=== PATIENT | male | born 1955 | race Caucasian/White ===

== ENCOUNTER → 2018-10-11 | Outpatient (CLI) | payer BC ==
--- NOTE | 2018-10-11 11:58 | Diagnostic Imaging Report ---
PATIENT HISTORY: Knee pain, left. TECHNIQUE: Three views of the left knee. COMPARISON: None. FINDINGS: No acute fracture is seen in the left knee. Alignment appears normal. There are advanced degenerative changes at the proximal tibiofibular joint. There is extensive calcific atherosclerosis. There is enthesopathy of the superior patella with overlying soft tissue edema. No joint effusion is seen. IMPRESSION: 1. Degenerative changes in the proximal tibiofibular joint with no acute osseous abnormality seen in the left knee. 2. Enthesopathy at the superior patella with adjacent soft tissue edema. Dictated by: Dictated on workstation # [id number]
== END ==
LOC: RAD FS 11:31
PROVIDERS: ATTEND Nurse Practitioner
DX: M76.892 Other specified enthesopathies of left lower limb, excluding foot (principal); M17.12 Unilateral primary osteoarthritis, left knee
CPT/HCPCS: 73562

== ENCOUNTER → 2022-01-01 | Outpatient (CLI) | payer MEDICARE, OTHER ==
[~2022-01-01] VITALS: Ht 185 cm; Wt 88.0 kg
[~2022-01-01] MED LIST: CATHETER FLUSH 10 ML SYR IVP PRN
[2022-01-01 12:19] VITALS: BP 140/87
--- NOTE | 2022-01-02 11:59 | Cardiology Stress Test Report ---
Stress Test Report Date of Procedure/Referring: Date of Procedure: Jan 01, 2022 PCP Valerie Cantu MD Admitting Physician Admitting Physician: Attending Physician: Josselyn Humphries MD Indications: HTN Baseline Heart Rate: 86 Baseline Blood Pressure: Blood Pressure Systolic: 140 Blood Pressure Diastolic: 87 Vital Signs Date Time Temp Pulse Resp B/P (MAP) Pulse Ox O2 Delivery O2 Flow Rate FiO2 01/01/22 12:19 86 140/87 (104) Baseline Vital Signs Vital Signs Date Time Temp Pulse Resp B/P (MAP) Pulse Ox O2 Delivery O2 Flow Rate FiO2 01/01/22 12:19 86 140/87 (104) Baseline EKG: Baseline EKG: NSR Summary: After explaining the procedure and details to the patient, he signed the consent and was brought to the stress nuclear laboratory. Patient exercised on standard Kumar protocol, EKG, heart rate and blood pressure were monitored continuously, resting and stress doses of radio tracer were injected, imaging was acquired and reviewed in the short axis, horizontal long axis and vertical long axis views Patient was able to exercise for a total of 6 minutes on Kumar protocol, METs 7.1 Maximum heart rate 148 Maximum blood pressure 233/98 Stress EKG, Minimal nondiagnostic changes Recovery EKG, Return to baseline TID: 0.98 SSS: 6 SDS: 4 EF: 50 Conclusion: 1. Fair exercise tolerance for a total of 6 minutes on Kumar protocol, 7.1 METS achieving 94% of maximum expected heart rate 2. Hypertensive response to exercise with peak blood pressure 233/98 3. Nondiagnostic EKG changes with exercise return to baseline in recovery 4. Reversible ischemia involving the mid to apical inferior wall 5. Normal left ventricular size, ejection fraction 50% Copy Copies To 1: VALERIE CANTU MD, BASHAR J MD Jan 02, 2022 11:59
== END ==
LOC: CARD 10:14
PROVIDERS: ATTEND Internal Medicine Cardiovascular Disease
DX: I10 Essential (primary) hypertension (principal); I25.10 Atherosclerotic heart disease of native coronary artery without angina pectoris
CPT/HCPCS: 78452; 93017; 93306; A9502

== ENCOUNTER 2022-01-15 10:28 | Day surgery (SDC) | payer MEDICARE, OTHER ==
[2022-01-15] VITALS (10 sets, daily range): BP systolic 106–130; BP diastolic 77–93
[~2022-01-15] VITALS: Ht 185.4 cm; Wt 92.2 kg
[2022-01-15] MEDS ORDERED: LIDOCAINE 1% INJ 20 ML VIAL ONE (10:41)
[2022-01-15] MEDS ORDERED: HEParin (CATH LAB) 2,000 ML IV ONE (10:42)
[2022-01-15] MEDS ORDERED: NS IV 1000 ML 1,000 ML ONE (10:42)
[2022-01-15] MEDS ORDERED: NS IV 1000 ML 1,000 ML IV SCH ×2 (10:45→13:15)
[2022-01-15] MEDS ORDERED: LEVO-129 PO (10:59)
[2022-01-15] MEDS ORDERED: ASPI-1238 PO (10:59)
[2022-01-15] MEDS ORDERED: BACI1TAB2 PO (10:59)
[2022-01-15] MEDS ORDERED: INUL1TAB4 PO (10:59)
[2022-01-15] MEDS ORDERED: MELO15TA39 PO (10:59)
[2022-01-15 11:13] LABS: HEMATOCRIT 45 % (40-54); HEMOGLOBIN 14.7 g/dL (13.3-17.7); MEAN CORPUSCULAR HEMOGLOBIN 32 pg (25-34); MEAN CORPUSCULAR HGB CONC 33 g/dL (32-36); MEAN CORPUSCULAR VOLUME 97 fL (80-99); MEAN PLATELET VOLUME 10.7 fL (9.0-12.2); PLATELET COUNT 300 10^3/uL (130-400); WHITE BLOOD COUNT 8.1 10^3/uL (4.3-11.0)
--- NOTE | 2022-01-15 11:14 | Diagnostic Imaging Report ---
INDICATION: Coronary artery disease. FINDINGS: The lungs are clear. There is no failure, effusion, or pneumothorax. IMPRESSION: No acute appearing abnormality. Dictated by: Dictated on workstation # [id number]
[2022-01-15 11:25] LABS: PROTHROMBIN TIME PATIENT 13.4 SEC (12.2-14.7)
[2022-01-15 11:31] LABS: BILIRUBIN,TOTAL 0.5 MG/DL (0.1-1.0); CALCIUM 9.1 MG/DL (8.5-10.1); CREATININE SERUM 0.92 MG/DL (0.60-1.30); POTASSIUM 4.7 MMOL/L (3.6-5.0); TOTAL PROTEIN 7.2 GM/DL (6.4-8.2)
--- NOTE | 2022-01-15 11:55 | Cardiac Procedure Note-CS/ASA ---
Pre-Procedure Note Pre-Op Procedure Note Date of Available H&P: Jan 15, 2022 Date H&P Reviewed: Jan 15, 2022 Time H&P Reviewed: 11:55 History & Physical: H&P Reviewed, Patient Examed, No changes noted Pre-Operative Diagnosis: Coronary artery disease Conscious Sedation Pre-Proced Time 11:55 ASA Score 3 For ASA 3 and 4: Consider anesthesia and medical clearance. Also, for patients with a history of failed moderate sedation consider anesthesia. Airway Lungs Heart ASA score ASA 1: a normal healthy patient ASA 2: a patient with a mild systemic disease (mid diabetes, controlled hypertension, obesity x ASA 3: a patient with a severe systemic disease that limits activity (angina, COPD, prior Myocardial infarction) ASA 4: a patient with an incapacitating disease that is a constant threat to life (CHF, renal failure) ASA 5: a moribund patient not expected to survive 24 hrs. (ruptured aneurysm) ASA 6: a declared brain- patient whose organs are being harvested. For emergent operations, add the letter E after the classification Mallampati Classification Grade 3 Sedation Plan Analgesia, Amnesia, Plan communicated to team members, Discussed options with patient/fam, Discussed risks with patient/fam The patient is an appropriate candidate to undergo the planned procedure, sedation, and anesthesia. The patient immediately re-assessed prior to indication. MARITZA MOSQUERA MD Jan 15, 2022 11:55
[2022-01-15] MEDS ORDERED: HEParin 1000 UNIT/ML (10ML VIAL) FOR BOLUS ONE (12:01)
[2022-01-15] MEDS ORDERED: MIDAZOLAM 5 MG/5 ML (VERSED) VIAL ONE (12:01)
[2022-01-15] MEDS ORDERED: fentaNYL INJ 100 MCG/2 ML AMP ONE (12:01)
[2022-01-15] MEDS ORDERED: VERAPAMIL 5 MG/2 ML (CALAN) VIAL IV ONE (12:01)
[2022-01-15] MEDS ORDERED: NITRO DRIP 25000 MCG/D5W 250 ML IV ONE (12:02)
--- NOTE | 2022-01-15 13:04 | Discharge Inst-Post CATH ---
Discharge Inst-CATH/EP Problems Reviewed?: Yes Post Cardiac Cath/EP D/C Inst Follow Up/Plan Appointment with Dr Humphries in 2-4 weeks <b>CARDIAC CATH/EP PROCEDURE DISCHARGE INSTRUCTIONS</b> ACTIVITY * Go Home directly and rest. * Limit activity of the leg (or wrist if it was used) for 7 days including aerobics, swimming, jogging, bicycling, etc. * Restrict stair-climbing for 7 days if possible, if not, climb up with your non-cath leg, then bring together on the same step. * Avoid lifting, pushing, pulling or excessive movement of the affected extremity for 7 days. * Customary sexual activity may be resumed after 2 days-use caution not to use a position that strains or causes pain to the affected extremity. * No driving for 24 hours. * NO SMOKING. * Avoid straining for bowel movements for 7 days. * Gentle walking on level ground is allowed. * Returning to work will depend on the type of procedure and the results. Your doctor will discuss this with you. CALL YOUR DOCTOR FOR ANY OF THE FOLLOWING: *If bleeding from the puncture site occurs- Apply gentle pressure to site with clean cloth and call your doctor or EMS. * If a knot or lump forms under the skin, increases in size, or causes pain. * If bruising appears to be worsening or moving further down your leg instead of disappearing. * Temperature above 101 F. CARE OF YOUR GROIN INCISION; * Bruising or purple discoloration of the skin near the puncture site is common. * You may shower only, no bathtub bathing for 5 days. Be careful to avoid slipping as your leg may feel stiff. * If a closure device was used on your femoral artery, please see the attached guide regarding care of the device and your leg. * Leave dressing on FOR 24 hours. CARE OF YOUR WRIST INCISION; * Bruising or purple discoloration of the skin near the puncture site is common. * You may shower. * DO NOT submerge wrist. * Leave dressing on FOR 24 hours. MARITZA HUMPHRIES MD Jan 15, 2022 13:04
--- NOTE | 2022-01-15 13:07 | Cardiac Cath Report ---
Cardiac Cath Report Physician (s)/Ecclesiastical Worker (s) Physician MARITZA MOSQUERA MD Pre-Procedure Diagnosis Pre-Procedure Diagnosis: Coronary artery disease Post-Procedure Note Procedure Start Date: Jan 15, 2022 Name of Procedure: Coronary angiogram Findings/Procedure Note PROCEDURE NOTE: 66-year-old gentleman with history of hypertension, hyperlipidemia, had an abnormal stress test, scheduled for cardiac catheterization possible PTCA. After explaining the procedure to the patient, all pros and cons were explained, all questions were answered. The patient signed the consent and then he was placed on the cardiac catheterization laboratory. Groin was prepped SL fashion local anesthesia was used. Sheath placed in the right radial artery, [place] catheter was used, advanced to the right coronary artery, angiogram was done, I did not cross the aortic valve. Tried multiple different catheter and I was successful with the EBU 3.5 guide to intubate subselectively the left system and angiogram was done. At the end of the procedure the sheath was removed. Vascular band was used FINDINGS: Hemodynamics LV was not measured, did not cross the aortic valve Aorta 102/64 mean of 78 ANATOMY: Left Main is free of obstructive disease Left Anterior Descending has mild tortuosity with mild disease nonobstructive disease Left Circumflex is small nondominant artery Right Coronary Artery is large dominant artery with diffuse ectasia and slow flow due to small vessel disease nonobstructive disease CONCLUSION: 1. Large dominant right coronary artery with mild ectasia and slow flow due to small vessel disease tortuous artery. 2. Slightly tortuous LAD with mild disease nonobstructive disease, no obstructive disease in the circumflex artery, nondominant artery DISCUSSION AND RECOMMENDATION: Medical therapy is recommended no intervention is warranted Anesthesia Type: Conscious Sedation Estimated blood loss (mL): 15 ml Contrast Amount: 56 ml Total Radiation Dose: 506 mGy Post-Procedure Diagnosis Post-operative diagnosis: Chest pain Coronary artery disease Hypertension Hyperlipidemia MARITZA MOSQUERA MD Jan 15, 2022 13:07
== END 2022-01-15 15:30 ==
LOC: CATH 10:28 → SDC 13:20 → CATH 15:30
PROVIDERS: ATTEND Internal Medicine Cardiovascular Disease
DX: I25.10 Atherosclerotic heart disease of native coronary artery without angina pectoris (principal); I10 Essential (primary) hypertension; E78.5 Hyperlipidemia, unspecified; E03.9 Hypothyroidism, unspecified; I65.23 Occlusion and stenosis of bilateral carotid arteries
CPT/HCPCS: 71045; 80053; 80061; 85027; 85610; 85730; 87081; 93005; 93454; C1887; C1894; 36415